=== PATIENT | male | born 1995 | race Caucasian/White ===

== ENCOUNTER 2024-12-29 10:49 | Emergency (ER) | payer BC ==
[~2024-12-29] VITALS: Ht 162.6 cm; Wt 104.5 kg
[2024-12-29] MEDS ORDERED: TEST200I14 IM (11:02)
[2024-12-29] MEDS ORDERED: IBUP-1114 PO (11:02)
[2024-12-29] MEDS ORDERED: LISI20TA33 PO (11:02)
[2024-12-29 11:40] LABS: BASO # 0.1 10^3/uL (0.0-0.2); BASO % 0.9 % (0.0-1.0); EOS # 0.3 10^3/uL (0.0-0.5); EOS % 2.4 % (0.0-3.0); LYMPH # 3.2 10^3/uL (1.5-5.0); LYMPH % 22.2 % (24.0-44.0); MONO # 0.9 10^3/uL (0.0-0.8); MONO % 6.6 % (2.0-8.0); NEUTROPHILS # 9.6 10^3/uL (1.5-8.5); NEUTROPHILS % 67.5 % (36.0-66.0); PLATELET COUNT, AUTOMATED 375 10^3/uL (150-450)
[2024-12-29 11:52] LABS: APPEARANCE, URINE CLEAR (CLEAR); BACTERIA, URINE AUTO NEGATIVE (NEGATIVE); BILIRUBIN, URINE AUTO NEGATIVE (NEGATIVE); BLOOD, URINE BLOOD NEGATIVE (NEGATIVE); GLUCOSE, URINE (UA) AUTO NEGATIVE (NEGATIVE); KETONE, URINE AUTO NEGATIVE (NEGATIVE); LEUKOCYTE ESTERASE, URINE AUTO NEGATIVE (NEGATIVE); NITRITE, URINE AUTO NEGATIVE (NEGATIVE); PROTEIN, URINE AUTO 1+ mg/dL (NEGATIVE); RBC, URINE AUTO 0 /HPF (0-3); SPECIFIC GRAVITY URINE AUTO 1.003 (1.002-1.035); SQUAMOUS EPITHELIAL CELL UR AU 1 /HPF (0-6); UROBILINOGEN, URINE AUTO 0.2 mg/dL (0.0-2.0); WBC, URINE AUTO 2 /HPF (0-3)
[2024-12-29 12:10] LABS: ALT/SGPT 23 U/L (7.0-40); AST/SGOT 17 U/L (<34); CALCIUM LEVEL 9.6 MG/DL (8.5-10.1); CARBON DIOXIDE LEVEL 27 MMOL/L (20-31); CHLORIDE LEVEL 107 MMOL/L (98-107); CREATININE FOR GFR 0.87 MG/DL (0.70-1.30); GLOMERULAR FILTRATION RATE > 90.0 (>60); POTASSIUM SERUM 4.3 MMOL/L (3.5-5.1); SODIUM LEVEL 141 MMOL/L (136-145)
[2024-12-29 12:41] VITALS: BP 249/139
[2024-12-29] MEDS: hydrALAZINE 20 MG/ML 1 ML VIAL IV STA (12:41)
[2024-12-29] MEDS ORDERED: HYDR12.55 PO (12:53)
[2024-12-29] MEDS ORDERED: HOME MED LIST COMPLETE! XX SCH (12:55)
[2024-12-29 12:57] LABS: FREE T4 1.01 NG/DL (0.89-1.76)
[2024-12-29] MEDS: diphenhydrAMINE 50 MG/ML VIAL IV STA (14:13)
[2024-12-29] MEDS: KETOROLAC 30 MG/ML 1 ML VIAL IV ONE (14:13)
[2024-12-29 15:06] VITALS: BP 176/99; TEMP 98.1; O2SAT 98
== END 2024-12-29 15:16 | disposition home or self-care (01) ==
LOC: M ED 10:49
DX: I10 Essential (primary) hypertension (principal); R51.9 Headache, unspecified; F17.200 Nicotine dependence, unspecified, uncomplicated
CPT/HCPCS: 70450; 71045; 80053; 81001; 82248; 83880; 84439; 84443; 85025; 93005; 93041; 94760; 96374; 96375; 99285; J0360; J1200; J1885; J2765